=== PATIENT | female | born 1945 | race Caucasian/White ===

== ENCOUNTER 2017-02-09 12:31 | Emergency (ER) | payer MEDICARE, OTHER ==
[2017-02-09 12:33] VITALS: BP 148/86; PULSE 83; RESP 16; TEMP 98.3; O2SAT 97
--- NOTE | 2017-02-09 13:09 | RADHPO ---
EXAM DATE/TIME: 02/09/2017 12:51 [place] COMPARISON: No previous studies available for comparison. INDICATIONS : Right shoulder pain after fall. MEDICAL HISTORY : None. SURGICAL HISTORY : Right shoulder replacement ENCOUNTER: Initial ACUITY: 1 day PAIN SCORE: 10/10 LOCATION: Right shoulder FINDINGS: Alignment is anatomic about the right total shoulder arthroplasty. Fracture is not appreciated. CONCLUSION: Anatomic alignment without fracture. Jasvir Gloria MD FACR on February 09, 2017 at 13:06 Board Certified Radiologist. This report was verified electronically.
[2017-02-09] MEDS ORDERED: ACETAMINOPHEN 325 MG TAB PO ONE (13:15)
--- NOTE | 2017-02-09 13:18 | PD ---
HPI Chief Complaint: Fall Time Seen by Provider: 12:41 Travel History International Travel<30 days: No Contact w/Intl Traveler<30days: No Traveled to known affect area: No History of Present Illness HPI 71-year-old female here with complaint of right shoulder pain after fall. Patient tripped, falling on her right shoulder and hitting the right aspect of her forehead/eyebrow. No LOC. She does note a small laceration around the right eyebrow. Patient does not have any neck or back pain. She complains of pain in her right shoulder and is concerned because she recently had a arthroplasty of the right shoulder approximately 3 months ago. Pain is made worse with any range of motion. No associated headache, nausea or vomiting. 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) ?: Not Past Surgical History Joint Replacement: Yes (RIGHT HIP, RIGHT KNEE) Social History Alcohol Use: No Tobacco Use: No Allergies-Medications (Allergen,Severity, Reaction): Coded Allergies: Oxycodone (Verified Allergy, Unknown, 02/09/17) Tramadol (Verified Allergy, Unknown, 02/09/17) Uncoded Allergies: "ANYTHING OXY" (Allergy, Unknown, 02/09/17) Reported Meds & Prescriptions Reported Meds & Active Scripts Active Active Prescriptions or Reported Medications Unobtainable Review of Systems Except as stated in HPI: all other systems reviewed are Neg Physical Exam Narrative GENERAL: Well-appearing elderly female in no acute distress SKIN: Focused skin assessment warm/dry. HEAD: Contusion over the right eyebrow with 3 mm laceration Normocephalic. EYES: Pupils equal and round. 3 mm without apparent pupillary defect. Extraocular movements intact. No scleral icterus. No injection or drainage. ENT: No nasal bleeding or discharge. Mucous membranes pink and moist. No tenderness to palpation of the bony facial anatomy. NECK: Supple without midline tenderness to palpation CARDIOVASCULAR: Regular rate and rhythm. RESPIRATORY: No accessory muscle use. MUSCULOSKELETAL: Surgical scar to the right shoulder with pain with any range of motion. No obvious deformity. Good distal sensation and pulses. Pain is made worse her most prominent with extreme external rotation and abduction greater than 90. The remainder of extremities are unremarkable except for mild swelling around the right ankle minimal to no pain with range of motion. No midline tenderness to palpation of thoracic or lumbar spine. Pelvis is stable AP and lateral compression. NEUROLOGICAL: Awake and alert. No obvious cranial nerve deficits. Motor grossly within normal limits. Normal speech. PSYCHIATRIC: Appropriate mood and affect; insight and judgment normal. Data Data Last Documented VS Vital Signs Date Time Temp Pulse Resp B/P Pulse Ox O2 Delivery O2 Flow Rate FiO2 02/09/17 12:33 98.3 83 16 148/86 97 Orders Shoulder, Complete (>2vws) (02/09/17 ) Acetaminophen (Tylenol) (02/09/17 13:15) MDM Medical Decision Making Medical Screen Exam Complete: Yes Emergency Medical Condition: Yes Medical Record Reviewed: Yes Differential Diagnosis 71-year-old female here after mechanical fall with right shoulder pain. Differential includes contusion, postoperative pain, fracture or dislocation. She does also have a slight laceration through the right eyebrow and associated contusion but no headache, nausea vomiting. My suspicion for intracranial pathology or skull fractures exceedingly low and I do not think she warrants imaging. Narrative Course X-ray of the right shoulder was obtained showing postoperative changes but no acute abnormalities. Laceration repaired. Procedures Procedure Narrative LACERATION LOCATION: Right eyebrow LENGTH: 3 mm NUMBER OF STITCHES/MELINA: Dermabond REPAIR: The area of the laceration was prepped with Betadine and sterilely draped. The wound was copiously irrigated and explored without evidence of foreign body, tendon injury or neurovascular injury. The wound was closed using Dermabond. This was a single layer repair. A sterile dressing was applied. The patient was advised to keep the dressing clean and dry. Patient tolerated the procedure well. Diagnosis Primary Impression: Right shoulder pain Qualified Code: M25.511 - Acute pain of right shoulder Additional Impressions: Laceration of right eyebrow Qualified Code: S01.111A - Laceration of right eyebrow, initial encounter Fall Qualified Code: W19.XXXA - Fall, initial encounter Referrals: Orthopedist as needed Primary Care Physician as needed Additional Instructions: Tylenol, Motrin as needed for pain. Sling as needed for comfort. Med/Other Pt SpecificInfo: No Change to Meds Scripts Unable to Obtain Active Prescriptions or Reported Meds Disposition: 01 DISCHARGE HOME Condition: Stable Umm Sargent MD Feb 09, 2017 13:17
== END 2017-02-09 13:53 | disposition home or self-care (01) ==
LOC: PHED 12:31
DX: M25.511 Pain in right shoulder (principal); S01.111A Laceration without foreign body of right eyelid and periocular area, initial encounter; I10 Essential (primary) hypertension; Z96.698 Presence of other orthopedic joint implants; W01.0XXA Fall on same level from slipping, tripping and stumbling without subsequent striking against object, initial encounter; Y93.9 Activity, unspecified; Y92.9 Unspecified place or not applicable; Y99.8 Other external cause status
CPT/HCPCS: 12011; 73030; 99283; L0150